=== PATIENT | female | born 1960 | race Caucasian/White ===

== ENCOUNTER 2016-05-13 11:51 | Emergency (ER) ==
[2016-05-13 12:02] VITALS: BP 119/74
--- NOTE | 2016-05-13 12:51 | Diag Imaging Result Document ---
PROCEDURE NAME: SINUSES PASCAL VIEW ONLY - 05/13/2016 SINGLE PASCAL VIEW OF THE PARANASAL SINUSES: COMPARISON: None available. FINDINGS: The paranasal sinuses are grossly clear. There is no definite air-fluid level identified. The mastoid air cells appear to be clear. Surrounding bony structures are grossly intact. IMPRESSION: Grossly unremarkable Pascal view of the paranasal sinuses.
--- NOTE | 2016-05-13 13:28 | PROVIDER DOCUMENTATION ---
HPI-General Adult <Loyda Lloyd - Last Filed: 05/13/16 13:28> - General Source: patient - History of Present Illness -Gen Adult Nature of Presenting Problems: 56 yo female presents to ER with c/o issues with her blood pressure being low, increased HR, headache, sinus congestion, runny nose for the past several days. Location of Pain/Injury: reports: face Pain Radiation: reports: no radiation Quality of Pain: reports: pressure Severity: reports: mild Onset/Duration: reports: 2 days ago Timing: reports: still present Context/Activities at Onset: reports: none Modifying Factors: improves with: nothing Associated Symptoms: reports: fatigue, muscle aches, sinus congestion/drainage Similar Symptoms Previously?: No Recently seen or treated by another doctor?: No <Carlee Lobato - Last Filed: 05/13/16 14:26> - General Chief Complaint: General Adult Stated Complaint: B/P PROBLEMS Time Seen by Provider: 05/13/16 13:45 Allergies/Adverse Reactions: Patient Allergies Allergy/AdvReac Type Severity Reaction Status Date / Time ketorolac tromethamine * Allergy Unknown Verified 06/13/15 09:10 [From Toradol] tramadol HCl * [From Ultram] Allergy Unknown Verified 06/13/15 09:10 Home Medications: Home Medication List Medication Instructions Recorded Confirmed Last Taken Type Hydrocodone/APAP 7.5 mg/325 mg 1 each PO BID PRN PRN 01/21/14 06/13/15 06/13/15 05:00 History [[place]-7.5] Lisinopril 20 mg PO DAILY 01/21/14 06/13/15 06/13/15 05:00 History Clonazepam [Klonopin] 1 mg PO BID 06/13/15 06/13/15 06/13/15 05:00 History Cyclobenzaprine [Flexeril] 10 mg PO TID #20 tablet 06/13/15 Unknown Rx Diclofenac Sodium 50 mg PO BID PRN #30 tablet. 06/13/15 Unknown Rx Famotidine [Pepcid] 20 mg PO DAILY #20 tablet 06/13/15 Unknown Rx Amoxicillin [Amoxil] 875 mg PO Q12HR #20 tablet 05/13/16 Unknown Rx Fluticasone 50 Mcg Nasal [place] 1 spray ROSELINE BID #1 bottle 05/13/16 Unknown Rx [Flonase] Loratadine [Claritin] 10 mg PO DAILY #30 tablet 05/13/16 Unknown Rx Review of Systems - Adult - REVIEW OF SYSTEMS - ADULT Constitutional: reports: no symptoms reported Eyes: reports: no symptoms reported Ears, Nose, Mouth & Throat: reports: see HPI, sinus problem Cardiovascular: reports: no symptoms reported Respiratory: reports: no symptoms reported Gastrointestinal: reports: no symptoms reported Genitourinary: reports: no symptoms reported Musculoskeletal: reports: no symptoms reported Integumentary: reports: no symptoms reported Neurological: reports: no symptoms reported Psychiatric: reports: no symptoms reported Endocrine: reports: no symptoms reported Hematologic/Lymphatic: reports: no symptoms reported Allergic/Immunologic: reports: no symptoms reported All Other Systems: Reviewed and Negative <uLis AlfredoMayDorian - Last Filed: 05/13/16 14:26> Past History - Adult - PAST MEDICAL HISTORY-ADULT Major Childhood Illnesses: reports: denies history Cardiovascular: reports: HTN Respiratory: reports: denies history Gastrointestinal: reports: denies history Obstetrical/Gynecological: reports: denies history Genitourinary: reports: denies history Musculoskeletal: reports: chronic pain Neurological: reports: headaches/migraines, Seizures/Epilepsy Psychiatric: reports: anxiety Endocrine/Immune: reports: denies history Other Conditions: reports: denies history - PRIOR SURGERIES/PROCEDURES Surgical/Procedure History: reports: hysterectomy - IMMUNIZATION STATUS Childhood Immunizations: UTD Flu Vaccine: UTD - FAMILY HISTORY Family History: reviewed, not pertinent <Loyda Lloyd - Last Filed: 05/13/16 13:28> - PAST MEDICAL HISTORY-ADULT Review of Records: reports: Old Records Reviewed, Nursing Assessment Review, Medications Reviewed, Social history reviewed & non-contributory. - SOCIAL HISTORY Smoking: denies, non-smoker Substance Use: denies Alcohol Use Frequency: never Living Situation: family <Luis AlfredoMay. - Last Filed: 05/13/16 14:26> Physical Exam-General - PHYSICAL EXAM-ADULT Initial Vital Signs Reviewed: Yes - CONSTITUTIONAL General Appearance: appears well, alert, no apparent distress - EYES Eyes: PERRL/EOMI, pink conjunctivae - HEAD, EARS, NOSE, MOUTH & THROAT HENMT: TMs normal, pharyngeal erythema (mild), frontal tenderness, maxillary tenderness - NECK Neck: non-tender, full range of motion, supple - RESPIRATORY Respiratory: lungs clear, normal breath sounds, no respiratory distress - CARDIOVASCULAR Cardiovascular: normal peripheral pulses, regular rate, rhythm - MUSCULOSKELETAL Extremity: normal gait - SKIN Integumentary: normal color, normal turgor, warm/dry - NEUROLOGIC Neurologic: grossly normal - PSYCHIATRIC Psych/Mental Status: normal mood/affect, normal thought content, normal thought process, oriented x 3 <LobatoCarlee. - Last Filed: 05/13/16 14:26> Progress - PLAN OF CARE/RESULTS Progress/Plan/Lab Results: 1415-Discussed results/dx/tx/discharge and follow up; patient verbalized understanding. Orders Category Date Time Status SINUSES [place] VIEW ONLY [RAD] Stat Exams 05/13/16 12:02 Draft Vital Signs - 24 hr 05/13/16 11:59 Temperature 97.8 F Pulse Rate 93 H Respiratory 18 Rate Blood Pressure 119/74 O2 Sat by Pulse 98 Oximetry - XRAY 1 XRAY Study: other (sinus water's view) Impression: Normal (no abnormality) XRAY Interpretation: Interpreted by Dr. Bhakta <Carlee Lobato - Last Filed: 05/13/16 14:26> Departure <Loyda Lloyd - Last Filed: 05/13/16 13:28> - Departure Time of Disposition Order: 14:25 Certified Medical Emergency: Emergent <LobatoCarlee Jeferson. - Last Filed: 05/13/16 14:26> - Departure DIAGNOSIS: Sinus congestion, Runny nose Head ache Qualifiers: Headache type: unspecified Headache chronicity pattern: acute headache Intractability: not intractable Qualified Code(s): R51 - Headache Disposition: HOME 01 Condition: Good Additional Instructions: Follow up with primary care doctor. Take medications as prescribed. Take blood pressure once a day and keep record to take to primary care doctor. ED Follow Up Instructions: You have been treated by a care provider in the Emergency Department. These instructions are being provided to you so you can have an understanding of how to care for yourself upon discharge. Upon discharge from the Emergency Department, you are responsible for making arrangements for follow-up care by a physician of your choice. Take all prescribed medications as directed. Return to the Emergency Department immediately for any new or worsening symptoms. You may call the Physician Referral phone number at [phone] to obtain a list of Physicians who are taking new patients. Prescriptions: Amoxicillin [Amoxil] 875 mg PO Q12HR #20 tablet Loratadine [Claritin] 10 mg PO DAILY #30 tablet Fluticasone 50 Mcg Nasal [place] [Flonase] 1 spray ROSELINE BID #1 bottle Referrals: Daniel Jay MD [Primary Care Provider] - Instructions: Migraine Headache, [id number] Attestation - Scribe Verification/Attestation Scribe:: Loyda Lloyd Scribe documention review:: This chart was documented by a scribe and accurately reflects the service the provider performed and the decisions made by the provider. <Loyda Lloyd - Last Filed: 05/13/16 13:28> - Physician/ DIGNA Attestation Patient care was provided by Advanced Practice Provider:: Yes Advanced Practice Provider:: Carlee Lobato Advanced Practice Provider documentation review:: The Mid-level provider documentation, treatment plan and medical decision making was reviewed by the physician who agrees with all treatment and medical decision making by the [facility]. <Carlee Lobato - Last Filed: 05/13/16 14:26> Physician Attestation - Physician Attestation I, the provider, attest to the following statement:: Carlee Lobato Physician documentation Attestation:: This documentation recorded by the scribe accurately reflects the service I personally performed and the decisions made by me. <Carlee Lobato - Last Filed: 05/13/16 14:26>
== END 2016-05-13 15:09 | disposition home or self-care (01) ==
LOC: P.ED 11:51
DX: R51 Headache (principal); R09.81 Nasal congestion; R09.89 Other specified symptoms and signs involving the circulatory and respiratory systems; I10 Essential (primary) hypertension; G89.29 Other chronic pain; F41.9 Anxiety disorder, unspecified; Z79.899 Other long term (current) drug therapy
CPT/HCPCS: 70210; 99283

== ENCOUNTER 2018-03-01 12:14 | Inpatient (IN) ==
[2018-03-01] MEDS ORDERED: NS 1,000 ML IV ONE (13:32)
[2018-03-01 13:37] LABS: BASO# 0.01 X1000 (0.0-0.2); BASO% 0.1 % (0.0-0.8); EOS# 0.16 X1000 (0.0-0.7); EOS% 1.8 % (0.0-10.0); HEMATOCRIT 32.6 % (37.0-47.0); HEMOGLOBIN 10.8 g/dL (12.0-16.0); IMM GRAN# 0.03 X1000 (0.0-0.04); IMM GRAN% 0.3 % (0.0-0.5); LYMPH% 26.3 % (20.5-51.1); MCH 30.3 PG (27-31); MCHC 33.1 g/dL (33-37); MCV 91.3 FL (81-99); MONO# 0.55 X1000 (0.11-0.59); MPV 10.9 FL (7.4-10.4); NEUT# 5.99 X1000 (1.4-6.5); NEUT% 65.5 % (42.2-75.2); PLT 346 X1000 (130-400); RBC 3.57 XMIL (4.2-5.4); RDW 12.4 % (11.5-14.5); WBC 9.14 X1000 (4.8-10.8)
[2018-03-01 13:47] LABS: ALB/GLOB RATIO 1.5; ALBUMIN 4.1 g/dL (3.5-5.0); CREATININE 3.4 mg/dL (0.5-0.9); MAGNESIUM 2.5 mg/dL (1.5-2.7); POTASSIUM 4.1 mmol/L (3.5-5.1); TOTAL BILIRUBIN 0.28 mg/dL (0.20-1.00); TOTAL PROTEIN 6.8 g/dL (6.3-8.3)
--- NOTE | 2018-03-01 14:01 | EKG Report ---
Test Performed on : 03/01/2018 1:22:27 PM Test Reason : syncope v. seizure Blood Pressure : / mmHG Vent. Rate : 103 BPM Atrial Rate : 103 BPM P-R Int : 136 ms QRS Dur : 076 ms QT Int : 338 ms P-R-T Axes : 028 030 035 degrees QTc Int : 442 ms Sinus tachycardia. Low voltage QRS Borderline ECG When compared with ECG of 02-JUN-2017 13:02, No significant change was found Unconfirmed Result
--- NOTE | 2018-03-01 16:24 | PROVIDER DOCUMENTATION ---
This chart was entered by Jossie Corado Scribe, acting as scribe for Karthik Castle MD. HPI-General Adult - General Chief Complaint: Seizure Stated Complaint: seizure Time Seen by Provider: 03/01/18 12:20 Source: patient, EMS Allergies/Adverse Reactions: Patient Allergies Allergy/AdvReac Type Severity Reaction Status Date / Time ketorolac tromethamine * Allergy Unknown Verified 03/01/18 13:33 [From Toradol] tramadol HCl * [From Ultram] Allergy Unknown Verified 03/01/18 13:33 Home Medications: Home Medication List Medication Instructions Recorded Confirmed Last Taken Type Clonazepam 1 mg PO BID 06/02/17 06/02/17 06/01/17 History Lisinopril/Hydrochlorothiazide 1 each PO DAILY 03/01/18 03/01/18 03/01/18 History [Lisinopril-Hctz 20-12.5 mg Tab] - History of Present Illness -Gen Adult Nature of Presenting Problems: 58 yowf presents to the ed via ems (first response) for possible seizure activity x2 in 2 days. pt sts she is unsure what happened and her got the front window cashier call 911 at [facility]. pt sts takes medication for seizures. dr castle called the and did not get an answer on the phone. pt sts has had multiple seizures since 1981. per ems when aos pt had BP of 71/44 73/50 91/61. pt on exam is a/o x3 and in no distress. pt sts "I didnt even want to come to the hospital" Location of Pain/Injury: reports: none Pain Radiation: reports: no radiation Quality of Pain: reports: none Severity: reports: mild Onset/Duration: reports: this morning Timing: reports: gone now Context/Activities at Onset: reports: light activity Modifying Factors: improves with: nothing Associated Symptoms: reports: seizure. denies: arm pain, back/neck pain, chest pain, diarrhea, dizziness, fever/chills, headaches, loss of appetite, malaise, shortness of breath, vomiting, trouble walking Similar Symptoms Previously?: Yes Recently seen or treated by another doctor?: No Review of Systems - Adult - REVIEW OF SYSTEMS - ADULT Constitutional: denies: chills, fever Eyes: reports: no symptoms reported Ears, Nose, Mouth & Throat: reports: no symptoms reported Cardiovascular: denies: chest pain, palpitations Respiratory: denies: cough, shortness of breath, wheezing Gastrointestinal: denies: diarrhea, nausea, vomiting Genitourinary: denies: dysuria, incontinence Musculoskeletal: denies: back pain, neck pain Integumentary: reports: no symptoms reported Neurological: reports: see HPI, seizure. denies: ataxia, dizziness/vertigo, headache/migraines, syncope, tremors Psychiatric: reports: no symptoms reported Endocrine: reports: no symptoms reported Hematologic/Lymphatic: reports: no symptoms reported Allergic/Immunologic: reports: no symptoms reported All Other Systems: Reviewed and Negative Past History - Adult - PAST MEDICAL HISTORY-ADULT Review of Records: reports: Old Records Reviewed, Nursing Assessment Review, Medications Reviewed, Social history reviewed & non-contributory. Major Childhood Illnesses: reports: denies history Cardiovascular: reports: HTN Respiratory: reports: denies history Gastrointestinal: reports: denies history Obstetrical/Gynecological: reports: denies history Genitourinary: reports: denies history Musculoskeletal: reports: chronic pain Neurological: reports: headaches/migraines, Seizures/Epilepsy Psychiatric: reports: anxiety Endocrine/Immune: reports: denies history Other Conditions: reports: denies history - PRIOR SURGERIES/PROCEDURES Surgical/Procedure History: reports: hysterectomy, BTL - IMMUNIZATION STATUS Childhood Immunizations: UTD Flu Vaccine: UTD - FAMILY HISTORY Family History: reviewed, not pertinent - SOCIAL HISTORY Smoking: denies Substance Use: denies Alcohol Use Frequency: never Living Situation: family Physical Exam-General - PHYSICAL EXAM-ADULT Initial Vital Signs Reviewed: Yes - CONSTITUTIONAL General Appearance: appears well, alert, no apparent distress - EYES Eyes: PERRL/EOMI, pink conjunctivae - HEAD, EARS, NOSE, MOUTH & THROAT HENMT: moist mucous membranes, normal ENT inspection - NECK Neck: non-tender, full range of motion, supple, normal inspection - RESPIRATORY Respiratory: chest non-tender, lungs clear, normal breath sounds - CARDIOVASCULAR Cardiovascular: normal peripheral pulses, tachycardia (103) - GASTROINTESTINAL (ABDOMEN) Abdominal Exam: normal bowel sounds, non tender, soft - LYMPHATIC Lymphatic: no adenopathy - MUSCULOSKELETAL Back Exam: normal inspection, no CVA tenderness, no vertebral tenderness Extremity: normal range of motion, non-tender, normal inspection, no pedal edema , no calf tenderness, normal capillary refill, pelvis stable - SKIN Integumentary: normal color, normal turgor, warm/dry - NEUROLOGIC Neurologic: grossly normal, no motor/sensory deficits - PSYCHIATRIC Psych/Mental Status: normal mood/affect, normal thought content, normal thought process, oriented x 3 Progress - PLAN OF CARE/RESULTS Progress/Plan/Lab Results: Vital Signs - 8 hr 03/01/18 12:16 Temperature 98.5 F Pulse Rate 78 Respiratory Rate 18 Blood Pressure 86/58 O2 Sat by Pulse Oximetry 96 pt has normal exam and in no distress 1238 dr castle spoke with the and he sts he heard pt fall but did not see any seizure activity. sts pt was a/o x3 and speaking to him when he came into the room. pt is a poor historian due to hard of hearing so pt complaint and hx is vague, but he does not describe witnessed seizure activity, and states she was verbally responsive within seconds of the collapse episode today. reviewed diagnostics, pt has DAVID w/ creat 3.6, normal creat last May. discussed w/ Dr. Jay who agreed to admit. Result Diagrams: 03/01/18 12:58 03/01/18 12:58 - REASSESSMENT Reassessment #1 Time Reassessed: 12:59 (pt is resting in bed) Status: unchanged Reassessment #2 Time Reassessed: 13:32 Status: unchanged Reassessment Comment: pt is on her cell phone and no distress - EKG 1 Time of EKG reading by physician:: 13:22 EKG Read and Signed by:: Karthik Castle EKG Interpretation (*Must complete 3 of following elements*): Normal (borderline ) Rate: 103 Rhythm: sinus tachycardia [place]: normal QRS: other (low voltage QRS) UT Interval: normal ST Wave: normal Departure - Departure Date of Disposition Decision: 03/01/18 Time of Disposition Decision: 16:23 DIAGNOSIS: Recurrent syncope, DAVID (acute kidney injury) Disposition: ADMITTED INPATIENT 09 Certified Medical Emergency: Emergent Condition: Stable Referrals and Follow-Ups: Daniel Jay MD [Primary Care Provider] - - Critical Care Note This patient required my direct & personal management of CC.: No Attestation - Physician/ DIGNA Attestation Patient care was provided by Advanced Practice Provider:: No The physician spent face to face time with patient:: Yes Advanced Practice Provider documentation review:: Supervising physician onsite and consulted in the evaluation and care of this patient. The physician did have a face to face encounter with the patient. This chart was documented by the indicated scribe, (Jossie Corado Scribe) and accurately reflects the services I performed and decisions made by me, Karthik Castle MD, as attested by the provider's signature.
[2018-03-01 16:26] LABS: UR AMPHETAMINES QUAL NONE DETECTED (NONE DETECT); UR BARBITUATES QUAL NONE DETECTED (NONE DETECT); UR BENZODIAZEPIN QUAL NONE DETECTED (NONE DETECT); UR CANNABINOIDS QUAL NONE DETECTED (NONE DETECT); UR COCAINE QUAL NONE DETECTED (NONE DETECT); UR METHADONE QUAL NONE DETECTED (NONE DETECT); UR OPIATES QUAL NONE DETECTED (NONE DETECT); UR OXYCODONE QUAL NONE DETECTED (NONE DETECT); UR PCP QUAL NONE DETECTED (NONE DETECT)
--- NOTE | 2018-03-01 17:49 | Diag Imaging Result Doc PS360 ---
EXAM: CT HEAD W/O CONTRAST 03/01/2018 HISTORY: syncope TECHNIQUE: This exam was performed using automated exposure control, adjustment of mA or kV according to patient size, and/or use of iterative reconstruction technique. COMMENT: There is no evidence of mass effect, bleed, abnormal extra-axial fluid collection, or hydrocephalus. Compared to the previous study of 06/02/2017 there has been no significant change in the appearance of the brain. IMPRESSION: No evidence of acute intracranial disease. Electronically signed by Gareth Deutsch 03/01/2018 5:47 PM
[2018-03-01] MEDS: KLONOPIN PO SCH (18:20)
[2018-03-01] MEDS: NORCO-7.5 PO PRN (18:20)
[2018-03-01] MEDS: D5 1/2 NS + KCL 10 MEQ 1,000 ML IV SCH (18:43)
[2018-03-01] MEDS: LOPRESSOR PO SCH (21:16)
[2018-03-01] MEDS: KEPPRA PO SCH (21:16)
--- NOTE | 2018-03-02 00:42 | HISTORY AND PHYSICAL ---
HISTORY OF PRESENT ILLNESS: Ms. Anderson, who is a 58-year-old white female, came earlier to the emergency room with having a history of passing out spells. Her witnessed the spells. She would go from one room to the kitchen, and suddenly pass out and fall down. This has been happening to her for the last one month. However, it has happened more frequently within the last 24 hours, several times. One time she felt she hit her head on the floor. There is no recent history of head trauma prior to this, or history of chest pains. She has a history of chronic back pain, and is dependent on pain medication, as well as she has chronic anxiety, and has been on Klonopin. She has a history of hypertension, and has been taking lisinopril HCT for a long time. SOCIAL HISTORY: She is not a smoker. Does not use any illicit drugs. Does not drink. PAST SURGICAL HISTORY: There is a past surgical history of hysterectomy. That is the only surgery she has had. REVIEW OF SYSTEMS: Other than what is mentioned, she has intermittent headaches. No definite seizures noted, but passing out. PHYSICAL EXAMINATION: VITAL SIGNS: Revealed temperature normal, pulse 95 per minute, respiratory rate 17 per minute, blood pressure 103/60. HEAD AND NECK: Normocephalic. Pupils PERRLA. Fundus examination normal. Neck supple. JVP normal. ENT examination unremarkable. There is no evidence of lymphadenopathy, thyroid enlargement, pedal edema, calf tenderness, anemia, cyanosis, or clubbing. Pedal pulses well-felt. BREAST EXAM: Not done. CHEST: Normal inspection. LUNGS: Clear on auscultation. PMI in the normal position. HEART: Sounds normal. No murmur, gallop, or rub noted. ABDOMEN: Nondistended. Hernial orifices normal. No guarding, rigidity, free fluid, masses, or organomegaly. Bowel sounds normal. RECTAL: Deferred. GR[employer]ING [employer]DM[employer]: Higher functions normal. Cranial nerves normal. Motor and sensory system examination unremarkable. Deep tendon reflexes normal. Plantars downgoing. Skull and spine examination normal for age. No cerebellar signs or signs of meningeal irritation. Locomotor exam and skin exam reveals painful movements of the lumbosacral spine. SLR positive. There is no dehydration or pedal edema at present. DIAGNOSTIC DATA: EKG shows sinus tachycardia, otherwise no acute changes. Her CBC was unremarkable. Electrolytes are normal. However, BUN is 38, creatinine is 3.4. Urine did not reveal any opiates, as well as benzodiazepines. IMPRESSION: Passing out spells. Etiology undetermined at the present time. The patient has chronic back pain from degenerative arthritis, history of hypertension, new-onset of renal failure. We will watch her on telemetry and get neuro checks. cc: Daniel Jay MD
[2018-03-02] MEDS: D5 1/2 NS + KCL 10 MEQ 1,000 ML IV SCH ×2 (04:30→18:06)
[2018-03-02] MEDS: KLONOPIN PO SCH ×2 (06:22→17:46)
[2018-03-02 07:42] LABS: CALCIUM 8.9 mg/dL (8.8-10.2); CREATININE 1.7 mg/dL (0.5-0.9); POTASSIUM 4.7 mmol/L (3.5-5.1)
--- NOTE | 2018-03-02 08:41 | Diag Imaging Result Doc PS360 ---
EXAM: CHEST-2 VIEWS 03/02/2018 HISTORY: routine TECHNIQUE: PA and lateral chest COMMENT: There is no evidence of acute cardiac or pulmonary disease. Compared to 06/02/2017 there has been no significant change. IMPRESSION: No evidence of acute disease. Electronically signed by Gareth Deutsch 03/02/2018 8:39 AM
[2018-03-02] MEDS: LOPRESSOR PO SCH (09:02)
[2018-03-02] MEDS: KEPPRA PO SCH ×2 (09:02→21:55)
--- NOTE | 2018-03-02 12:10 | PROGRESS NOTE ---
DATE: 03/02/2018 SUBJECTIVE: The patient is feeling a little bit better. I talked with her about her syncopal episodes, and she has been feeling very dry at the mouth. She has been feeling dizzy when she stands up quickly. Her blood pressures remain low even though her lisinopril hydrochlorothiazide was stopped. She was started on the metoprolol because of her pulse rate. Right now, I do not think that she is maintaining her blood pressure well enough, and I am going to stop the metoprolol-XL. If she becomes very tachycardic, we could always consider a different medicine such as digoxin. The pulse rates that I saw; the highest was only 109 and that may be reactive to her hypotension, and I think that she was also dehydrated. Her creatinine has dropped from 3.4 down to 1.7 with IV fluids. The patient is a seizure patient but had been off of medication. Dr. Jay went ahead and started her on Keppra, and he put her back on Klonopin. She has not had her EGD yet and those drugs may interfere somewhat with the EEG,. But they have already been started and we will just have to see what the EEG shows. Certainly, since she has had seizures in the past it may not have much effect on decision making with this. PHYSICAL EXAMINATION: Blood pressure is only 81/66. Pulse 87, temperature 98 degrees Fahrenheit. Oxygen saturations 92% on room air. She says she got up and walked around and did all right with that this morning. HEENT: She is normocephalic. EOMS intact. PERRLA. Throat clear. Lungs are clear to auscultation and percussion without rhonchi, rales, or wheezes. Heart: Regular rate and rhythm without murmurs, gallops, or friction rubs. There is sinus tachycardia previously but now is a normal sinus rhythm. Abdomen is soft. Active bowel sounds. No organomegaly or tenderness. Neurologic: Exam intact grossly. ASSESSMENT: 1. Syncope. 2. Hypotension. 3. Probable dehydration with acute kidney injury,. Now improving. 4. Known seizure disorder. PLAN: We will stop the metoprolol for now. We will watch her heart rate. If it does get to going very fast, we can try a different medicine that does not affect her blood pressure. Later, she may need a blood pressure medicine. She has been on antihypertensives in the past, but we might have to use the metoprolol at a lower dose. For right now, I think that we should let her blood pressure rise some as this may make her feel better. Otherwise, we will continue to do workup for her syncope. cc: MD Daniel Armenta Jr, MD
[2018-03-02] MEDS: NORCO-7.5 PO PRN (13:05)
[2018-03-03] MEDS: NORCO-7.5 PO PRN ×2 (00:03→08:25)
[2018-03-03] MEDS: D5 1/2 NS + KCL 10 MEQ 1,000 ML IV SCH ×2 (05:06→16:10)
[2018-03-03] MEDS: KLONOPIN PO SCH ×2 (05:06→17:17)
[2018-03-03 06:59] LABS: BASO# 0.01 X1000 (0.0-0.2); BASO% 0.2 % (0.0-0.8); EOS# 0.17 X1000 (0.0-0.7); EOS% 3.8 % (0.0-10.0); HEMATOCRIT 29.6 % (37.0-47.0); HEMOGLOBIN 9.3 g/dL (12.0-16.0); LYMPH# 1.86 X1000 (1.2-3.4); LYMPH% 41.6 % (20.5-51.1); MCH 29.5 PG (27-31); MCHC 31.4 g/dL (33-37); MONO# 0.31 X1000 (0.11-0.59); MONO% 6.9 % (1.7-9.3); MPV 10.9 FL (7.4-10.4); NEUT# 2.12 X1000 (1.4-6.5); NEUT% 47.5 % (42.2-75.2); PLT 269 X1000 (130-400); RBC 3.15 XMIL (4.2-5.4); RDW 12.3 % (11.5-14.5); WBC 4.47 X1000 (4.8-10.8)
[2018-03-03 07:11] LABS: CALCIUM 8.5 mg/dL (8.8-10.2); CREATININE 1.3 mg/dL (0.5-0.9)
[2018-03-03] MEDS: KEPPRA PO SCH ×2 (08:25→22:16)
[2018-03-03 08:31] LABS: POTASSIUM 4.1 mmol/L (3.5-5.1)
--- NOTE | 2018-03-03 11:23 | PROGRESS NOTE ---
DATE: 03/03/2018 SUBJECTIVE: The patient has a little bit of a headache but otherwise is feeling all right. We did stop her metoprolol and her pulse rate has been maintained but her blood pressure is still a little on the low side at 93/63. She is not feeling any symptoms with this. I think we will continue to watch her blood pressure and pulse rate well. OBJECTIVE: Vital Signs: Pulse was 87, respirations 18, temperature 97.3 degrees Fahrenheit. HEENT: She is normocephalic. EOMs intact. Throat is clear. Lungs: Clear to auscultation and percussion without rhonchi, rales, or wheezes. Heart: Regular rate and rhythm without murmurs, gallops, or friction rubs. Abdomen: Soft. Active bowel sounds. No organomegaly or tenderness. Neurologic Examination: Intact grossly. ASSESSMENT: 1. Syncope. 2. Hypotension. 3. Probable dehydration with acute kidney injury. 4. Seizure disorder. PLAN: EEG is planned. It should be noted that her creatinine has come down from 3.4 down to 1.3. I do think that she is still a little dehydrated. I will increase her IVs fluids up to 125 mL per hour instead of 100 mL an hour. cc: MD Daniel Armenta Jr, MD
[2018-03-04] MEDS: D5 1/2 NS + KCL 10 MEQ 1,000 ML IV SCH (01:19)
[2018-03-04] MEDS: KLONOPIN PO SCH (06:11)
[2018-03-04 06:36] LABS: BASO# 0.01 X1000 (0.0-0.2); BASO% 0.2 % (0.0-0.8); MCV 93.3 FL (81-99)
[2018-03-04] MEDS: NORCO-7.5 PO PRN (06:48)
[2018-03-04 07:34] VITALS: BP 102/67
[2018-03-04 07:38] LABS: CALCIUM 9.5 mg/dL (8.8-10.2); CREATININE 1.3 mg/dL (0.5-0.9); POTASSIUM 5.1 mmol/L (3.5-5.1)
[2018-03-04 07:48] LABS: EOS# 0.25 X1000 (0.0-0.7); EOS% 4.7 % (0.0-10.0); HEMATOCRIT 30.5 % (37.0-47.0); HEMOGLOBIN 9.7 g/dL (12.0-16.0); LYMPH# 1.49 X1000 (1.2-3.4); LYMPH% 27.9 % (20.5-51.1); MCH 29.7 PG (27-31); MCHC 31.8 g/dL (33-37); MONO# 0.38 X1000 (0.11-0.59); MONO% 7.1 % (1.7-9.3); MPV 11.1 FL (7.4-10.4); NEUT# 3.22 X1000 (1.4-6.5); NEUT% 60.1 % (42.2-75.2); PLT 292 X1000 (130-400); RBC 3.27 XMIL (4.2-5.4); RDW 12.3 % (11.5-14.5); WBC 5.35 X1000 (4.8-10.8)
--- NOTE | 2018-03-04 10:24 | PROGRESS NOTE ---
DATE: 03/04/2018 Ms. Anderson is doing better. She did not have any such episode. She has been on Keppra. Her telemetry did not show any acute changes, any arrhythmias. The EKG did not show any acute change and she is doing better. I am going to discharge her after she has had her EEG done. cc: Daniel Jay MD
--- NOTE | 2018-03-04 10:25 | DISCHARGE SUMMARY ---
ADMISSION DATE: 03/01/2018 DISCHARGE DATE: 03/04/2018 HISTORY OF PRESENT ILLNESS: Ms. Anderson is a 58-year-old white female who was admitted with a diagnosis of passing out spells. She had a question of a seizure disorder in the past. LABORATORY DATA: Revealed CBC showed anemia, hemoglobin was 9.7, white count normal. Initial creatinine was 3.4, BUN was 38. Repeat BUN was 27, creatinine 1.7, and it came down to 18 BUN and 1.3 of creatinine. Toxicology was negative. COURSE IN THE HOSPITAL: She was kept on telemetry. Initially, the blood pressure was very high. IV labetalol was ordered p.r.n. blood pressures had been stabilized. His EKG does not show acute changes. CT scan of the brain is negative. EEG has been ordered and not done yet. However, after the EEG is done, she will be discharged today. FINAL DIAGNOSIS: possible seizure disorder. I gave her a prescription of Keppra. cc: Daniel Jay MD MTDD
[2018-03-04] MEDS: KEPPRA PO SCH (10:33)
--- NOTE | 2018-03-04 14:06 | EEG REPORT ---
DATE: 03/01/2018 REFERRING PHYSICIAN: Dr. Jay BULL GANG WORKER: Faiza Chen BACKGROUND INFORMATION AND TECHNIQUE: This is a digitally recorded routine EEG with video. HISTORY: This is a 68-year-old female patient with reports of history of epilepsy diagnosed at age [age] years old. She was brought to the emergency department after a passing out episode. She got up from the couch, felt lightheaded, walked to the pantry and passed out, hitting the back of her head. did not report jerking or shaking. She reported feeling confused after the episode, taking 15 to 20 minutes to return to baseline. She reports 10 episodes of passing out over the last month. EEG is ordered to detect evidence of seizures. MEDICATIONS: Keppra, Klonopin, [place]. EEG FINDINGS: A moderately well formed 9 hertz posterior dominant alpha rhythm is seen symmetrically in the occipital regions and attenuates with eye opening. The anterior background at maximal alertness consists of mixed alpha and beta range frequencies. Excessive beta frequency is seen diffusely. No definite persistent focal slowing. No epileptiform discharges. No seizures. Hyperventilation induced diffuse physiologic slowing. Photic stimulation did not alter the record. The patient becomes drowsy and enters into stage II sleep with qualitatively normal sleep architecture. EKG demonstrates regular RR intervals. IMPRESSION AND CLINICAL CORRELATION: Normal routine EEG in the awake, drowsy and sleep states. Of note, a normal EEG does not rule out epilepsy. Clinical correlation is recommended. Excessive beta frequency is usually a medication effect, often seen with medications such as benzodiazepines. cc: MD Daniel Sanz MD
== END 2018-03-04 12:15 | disposition home or self-care (01) | DRG 101 ==
LOC: SUPCPDRO → ED 12:14 → 4N 16:52
PROVIDERS: ADMIT Internal Medicine; ATTEND Internal Medicine
CPT/HCPCS: 70450; 71020; 71046; 80048; 80053; 80101; 80301; 80307; 80324; 80345; 80346; 80353; 80358; 80361; 80365; 82948; 83735; 83992; 85025; 93005; 95816; 96360; 99285; A9270; G0431; G0434; G0479; G0480; J3480; J7030; XXXXX